=== PATIENT | male | born 1965 | race Two or more races ===

== ENCOUNTER 2020-11-04 08:00 | Outpatient (CLI) | payer OTHER | END 2020-11-04 08:30 | disposition home or self-care (01) | LOC: PPH VACUNA 08:00 | DX: Z23 Encounter for immunization (principal) ==

== ENCOUNTER 2020-11-25 16:09 | Outpatient (CLI) | payer OTHER | END 2020-11-25 16:30 | disposition home or self-care (01) | LOC: PPH VACUNA 16:09 | PROVIDERS: ATTEND Emergency Medicine Pediatric Emergency Medicine | DX: Z23 Encounter for immunization (principal) ==